=== PATIENT | female | born 1930 | race Caucasian/White ===

== ENCOUNTER 2016-08-12 11:19 | Emergency (ER) | payer MEDICARE, BC ==
[~2016-08-12] VITALS: Ht 172.7 cm; Wt 106.8 kg
[~2016-08-12 11:19] MED LIST: ASPI-611 PO; BRIM5DRO5 BOTH EYES; CALC1TAB16 PO; CHOL200024 PO; DULO60CA25 PO; FURO-153 PO; GABA-215 PO; HYDR-347 PO; INSU100V8 SQ; LABE100T PO; LISI-625 PO; MORP-5 PO; MULT-798 PO; NITR0.4T SL; NYST10PO TOP; POLY17PO6 PO; POTA10CA37 PO; TIMO1DRO2 LEFT EYE
[2016-08-12 11:20] VITALS: Ht 172.7 cm; Wt 106.8 kg
--- NOTE | 2016-08-12 11:38 | NUR ---
O2 OXYGEN 83-86% ON 6L/NC. PT PLACED ON 10L SM AT THIS TIME. SPO2 IMPROVES TO 97%.
--- NOTE | 2016-08-12 11:40 | NUR ---
DR HINES AT BEDSIDE TO SEE PT.
--- OUTSIDE RECORDS SUMMARY | 2016-08-12 11:40 | XMS REPORT | Continuity of Care Document ---
Author Author [facility] Organization [facility] Address Unknown Phone Unavailable Support Name Relationship Address Phone ALE RAMÍREZ MD Caregiver [address] [place] [address] Unavailable CASTROKALEY DO Caregiver [address] [place] [address] Unavailable CJ ISABEL DO Caregiver [address] [place] [address] Unavailable CJ ISABEL DO Caregiver [address] [place] [address] Unavailable VANGIE HALL Next Of Kin [address] [address] Insurance Providers Guarantor Mackenzie Hall Address [address] [address] Email NO TO PT PORTAL [facility] Policy Number [id number] Subscriber's Name Mackenzie Hall Relationship 18 Self Group Number [id number] Payer Medicare Policy Number [id number] Subscriber's Name Mackenzie Hall Relationship 18 Self Advance Directives Directive Response Recorded Date/Time Advanced Directives Type DPOA for Healthcare 07/23/16 4:55am Dr Ordered Resuscitation Status Full Code 07/23/16 7:57am Resuscitation Documents on File No 07/23/16 9:12am DPOA for Healthcare Only Y Carmen Delgadillo 07/23/16 9:37pm Living Will No 07/23/16 9:12am Problems Active Problems Medical Problem Onset Date Status Acute kidney injury Unknown Resolved Acute respiratory insufficiency Unknown Resolved Atherosclerotic heart disease of [place] coronary artery without angina pectoris Unknown Chronic CAD (coronary artery disease) Unknown Chronic DM (diabetes mellitus) Unknown Chronic Depression Unknown Chronic EXACERBATION OF BACK PAIN Unknown Acute Essential (primary) hypertension Unknown Chronic Fall Unknown Acute Gait instability Unknown Chronic HTN (hypertension) Unknown Chronic Hyperkalemia Unknown Resolved Hypoglycemia Unknown Acute Hypokalemia Unknown Resolved Hypoxemia Unknown Resolved Hypoxemia requiring supplemental oxygen Unknown Acute Lumbago Unknown Acute Macular degeneration Unknown Chronic Mixed hyperlipidemia Unknown Chronic Morbid obesity with BMI of 40.0-44.9, adult Unknown Chronic Neuropathy Unknown Chronic OA (osteoarthritis) Unknown Chronic Occlusion and stenosis of bilateral carotid arteries Unknown Chronic Pacemaker Unknown Chronic Pain Unknown Peripheral edema Unknown Acute Presence of cardiac pacemaker Unknown Chronic Pulmonary infiltrates on CXR Unknown Resolved Respiratory insufficiency Unknown Acute SPINAL STENOSIS Unknown Chronic Sepsis Unknown Resolved Spinal stenosis Unknown Stage III chronic kidney disease Unknown Chronic Tinea versicolor Unknown Acute UTI Unknown Acute UTI (urinary tract infection) Unknown Acute Vision problems Unknown Chronic sciatica Unknown Acute Past Problems Medical Problem Onset Date Generalized weakness Unknown Hypoxemia requiring supplemental oxygen Unknown Hypoxia Unknown Refractory nausea and vomiting Unknown Sepsis Unknown Septic shock Unknown UTI (urinary tract infection) Unknown Medications Current Home Medications Medication Dose Units Route Directions Days Qty Instructions Start Date Aspirin 81 Mg Tablet 81 Mg Oral Daily 06/14/11 Brimonidine Tartrate (Alphagan Eqv) 5 Ml Drops 1 Drop Both Eyes Twice A Day 01/09/13 Calcium Carbonate 500 Mg Tablet 1,000 Mg Oral Twice A Day Cholecalciferol (Vitamin D3) (Vitamin D) 2,000 Unit Tablet 2,000 Unit Oral Daily 01/09/13 Duloxetine Hcl (Cymbalta) 60 Mg Capsule.dr 60 Mg Oral Daily 05/05 Furosemide (Lasix) 40 Mg Tablet 1 Tab Oral Daily 07/23/16 Gabapentin 300 Mg Capsule 900 Mg Oral Three Times A Day 01/09/13 Hydrocodone/Acetaminophen ([place] 7.5-325 Tablet) 7.5-325 Tablet 1 Tab Oral Twice A Day 07/23/16 Insulin Glargine,Hum.rec.anlog (Lantus) 100 Unit/Ml Inj 45 Unit Sub-Q Daily Morning Insulin 07/23/16 Insulin Glargine,Hum.rec.anlog (Lantus) 100 Unit/Ml Inj 25 Unit Sub-Q 15 Minutes Before Supper 07/23/16 Labetalol Hcl 100 Mg Tablet 200 Mg Oral Twice A Day for Hypertension 60 Tablet 07/27/16 Lisinopril 5 Mg Tablet 5 Mg Oral Give 0900 & 1700 60 Tablet Morphine Sulfate (Morphine Sulfate Er) 15 Mg Tablet.er 15 Mg Oral Twice A Day for Pain 60 Tablet 07/27/16 Multivits W-Ca,Fe,Other Min (Womens Multiple Vitamins) 1 Tab Tablet 1 Tab Oral Daily 05/02/12 Nitroglycerin (Nitrostat) 0.4 Mg Tablet 1 Tab Sublingual Every 5 Minutes X 3 12/06/15 Nystatin 50,000,000 Unit Powder.ea. 1 Applic Topically Three Times A Day for Tinea 7 Days 07/27/16 Polyethylene Glycol 3350 (Miralax) 17 Gm Powd.pack 17 G Oral Twice A Day Take 17 Grams (1 capful), by mouth, once a day. 07/23/16 Potassium Chloride 10 Meq Capsule.er 10 Meq Oral Give With Breakfast 30 Capsule Take 1 capsule, by mouth, daily with breakfast 07/27/16 Timolol Maleate/Pf (Timoptic 0.5% Ocudose Drop) 1 Each Droperette 1 Drop Left Eye Only Twice A Day 12/06/15 Past Home Medications Medication Directions Ordered Status Acetaminophen (Acetaminophen Extra Strength) 500 Mg Tablet, As Needed Discontinued Acetaminophen (Tylenol Extra Strength) 500 Mg Tablet, 500 Mg Oral As Needed 11/02/09 Discontinued Aliskiren Hemifumarate (Tekturna) 150 Mg Tablet, 150 Mg Oral Daily 10/23/08 Discontinued Amlodipine Besylate (Norvasc) 10 Mg Tablet, 5 Mg Oral Daily 03/17/10 Discontinued Aspirin 81 Mg Tablet, 1 Tab Oral Daily 03/17/10 Discontinued Aspirin 325 Mg Tablet, 81 Mg Oral Daily 11/02/09 Discontinued Atenolol 25 Mg Tablet, 25 Mg Oral Twice A Day 01/20/11 Discontinued Baclofen 10 Mg Tablet, 10 Mg Oral Twice A Day 05/10/16 Discontinued Brimonidine Tartrate 15 Ml Drops, 1 Ml Ophthalmic Twice A Day 03/27/11 Discontinued Calcium Carbonate/Vitamin D3 (Calcium + D Tablet) 1 Udtab Tablet, 1 Udtab Oral Twice A Day 03/17/10 Discontinued Celecoxib (Celebrex) 200 Mg Capsule, 200 Mg Oral Daily 11/04/11 Discontinued Celecoxib (Celebrex) 200 Mg Capsule, 200 Mg Oral Daily 08/06/11 Discontinued Cholecalciferol (Vitamin D) 1,000 Unit Capsule, 1000 Unit Oral Daily Discontinued Cholecalciferol (Vitamin D) 1,000 Unit Tablet, 1000 Unit Oral Daily 03/17/10 Discontinued Clopidogrel Bisulfate (Plavix) 75 Mg Tablet, 75 Mg Oral Daily 06/14/11 Discontinued Clopidogrel Bisulfate (Plavix) 75 Mg Tablet, 75 Mg Oral Daily 03/17/10 Discontinued Colesevelam Hcl (Welchol) 625 Mg Tablet, 625 Mg Oral Daily 04/11/09 Discontinued Docusate Sodium (Colace) 100 Mg Capsule, 100 Mg Oral Twice A Day 03/27/11 Discontinued Enoxaparin Sodium (Lovenox) 40 Mg/0.4 Ml Disp.syrin, 40 Mg Sub-Q Daily Discontinued Exenatide (Byetta) 10 Mcg Pen, 5 Mcg Sub-Q Twice A Day 04/11/09 Discontinued Fentanyl (Duragesic 25MCG/Hr Patch) 1 Patch Patch, 1 Patch Transderm Daily Discontinued Ferrous Sulfate (Iron) 1 Tab Tablet, 1 Tab Oral Daily 10/23/08 Discontinued Fish Oil/[place]-3 Fatty Acids (Fish Oil 1,000 Mg Capsule) 1 Cap Capsule, 1 Cap Oral Daily 09/23/11 Discontinued Fish Oil/[place]-3 Fatty Acids (Fish Oil 1,000 Mg Capsule) 1 Cap Capsule, 1 Cap Oral Twice A Day 03/17/10 Discontinued Furosemide (Lasix) 40 Mg Tablet, 40 Mg Oral Daily 09/23/11 Discontinued Furosemide 40 Mg Tablet, 40 Mg Oral Twice A Day 06/14/11 Discontinued Furosemide (Lasix) 20 Mg Tablet, 20 Mg Oral Daily 03/27/11 Discontinued Glimepiride (Amaryl) 1 Mg Tablet, 1 Mg Oral Daily 09/23/11 Discontinued Glimepiride 2 Mg Tablet, 2 Mg Oral Daily 06/14/11 Discontinued Glimepiride (Amaryl) 1 Mg Tablet, 1 Tab Oral Twice A Day 03/17/10 Discontinued Glimepiride 1 Mg Tablet, 1 Mg Oral Daily 04/11/09 Discontinued Glimepiride 1 Mg Tablet, 1 Mg Oral Daily 10/22/08 Discontinued Hydrochlorothiazide 25 Mg Tablet, 12.5 Mg Oral Daily 03/17/10 Discontinued Hydrocodone Bit/Acetaminophen ([place] 10) 1 Udtab Tablet, 1 Udtab Oral As Needed 11/04/11 Discontinued Hydrocodone Bit/Acetaminophen ([place] 7.5/325 Tablet) 1 Tab Tablet, 1 Tab Oral Every 4-6 Hours as needed 03/27/11 Discontinued Hydrocodone Bit/Acetaminophen (Lortab 5/500 Tablet) 1 Tab Tablet, 1 Tab Oral Three Times A Day 01/20/11 Discontinued Hydrocodone/Acetaminophen ([place] 5-325 Tablet) 5-325 Tablet, 1 Tab Oral Every 3 Hours as needed for Pain 05/10/16 Discontinued Ibuprofen 200 Mg Tablet, 200 Mg Oral As Needed 10/23/08 Discontinued Imodium Ad , As Needed 11/02/09 Discontinued Insulin Glargine (Lantus) 100 U/Ml Vial, 55 Unit Sub-Q Daily 09/23/11 Discontinued Insulin Glargine (Lantus) 100 U/Ml Vial, 16 U Sub-Q Bedtime 03/27/11 Discontinued Insulin Glargine (Lantus) 100 U/Ml Vial, 20 U Sub-Q Daily 03/27/11 Discontinued Insulin Glargine (Lantus) 100 U/Ml Vial, 14 Unit Sub-Q Twice A Day 03/17/10 Discontinued Lantus Solostar , 16 Sub-Q Twice A Day 03/22/11 Discontinued Lisinopril 5 Mg Tablet, 2.5 Mg Oral Twice A Day 12/06/15 Discontinued Lisinopril 40 Mg Tablet, 10 Mg Oral Daily 06/14/11 Discontinued Lisinopril 40 Mg Tablet, 40 Mg Oral Daily 03/17/10 Discontinued Magnesium 250 Mg Tablet, 250 Mg Oral Daily 03/17/10 Discontinued Meloxicam (Mobic) 15 Mg Tablet, 15 Mg Oral Daily 07/23/08 Discontinued Metformin , 50 Mg Twice A Day 03/22/11 Discontinued Metoprolol Succinate (Toprol Xl) 50 Mg Tab.sr.24h, 25 Mg Oral Twice A Day 04/16 Discontinued Metoprolol Tartrate 50 Mg Tablet, 50 Mg Oral Twice A Day 05/02/12 Discontinued Metoprolol Tartrate 25 Mg Tablet, 50 Mg Oral Daily 06/14/11 Discontinued Morphine Sulfate (Ms Contin) 100 Mg Tablet.er, 1 Tab Oral Twice A Day Discontinued Multivitamins W-Minerals (Multivitamin) 1 Cap Capsule, 1 Cap Oral Daily 03/17 Discontinued Naproxen (Naprosyn) 250 Mg Tablet, 250 Mg Oral Daily 09/23/11 Discontinued Nitrofurantoin Monohyd/M-Cryst (Macrobid 100 Mg Capsule) 100 Mg Capsule, 1 Cap Oral Twice Daily With Meals 07/23/16 Discontinued Nitroglycerin 0.4 Mg Tab.subl, 0.4 Mg Sublingual As Needed 03/17/10 Discontinued Omeprazole (Prilosec) 20 Mg Capsule.dr, 20 Mg Oral Daily 09/23/11 Discontinued Omeprazole (Prilosec) 20 Mg Capsule.dr, 20 Mg Oral Daily 03/22/11 Discontinued Omeprazole (Prilosec) 20 Mg Capsule.dr, 20 Mg Oral Daily 11/02/09 Discontinued Ondansetron Hcl (Zofran) 4 Mg Tablet, 4 Mg Oral As Needed 06/14/11 Discontinued Oxybutynin , 5 Mg Daily 03/22/11 Discontinued Oxybutynin Chloride (Ditropan) 5 Mg Tablet, 5 Mg Oral Bedtime 11/04/11 Discontinued Pantoprazole Sodium (Protonix) 40 Mg Tablet.dr, 40 Mg Oral Daily 03/27/11 Discontinued Pantoprazole Sodium (Protonix) 40 Mg Tablet.dr, 40 Mg Oral Daily 04/11/09 Discontinued Pioglitazone Hcl 15 Mg Tablet, 15 Mg Oral Daily 12/06/15 Discontinued Pioglitazone Hcl (Actos) 45 Mg Tablet, 45 Mg Oral Daily 10/24/09 Discontinued Potassium Chloride (Klor-Con M20) 20 Meq Tablet, 20 Meq Oral Every Morning Discontinued Potassium Chloride 20 Meq Tab.prt.sr, 20 Meq Oral Daily 11/04/11 Discontinued Promethazine Hcl 25 Mg Tablet, 25 Mg Every 4-6 Hours Prn for Nausea 12/06/15 Discontinued Propoxyphene/Acetaminophen (Darvocet-N 100 Tablet) 1 Tab Tablet, 1 Tab Oral As Needed 10/23/08 Discontinued Psyllium Seed (Metamucil) 1 Pkt Packet, 1 Pkt Oral Twice A Day 03/17/10 Discontinued Raloxifene Hcl (Evista) 60 Mg Tablet, 60 Mg Oral Bedtime 03/17/10 Discontinued Sertraline Hcl (Zoloft) 25 Mg Tablet, 25 Mg Oral Daily 06/14/11 Discontinued Sertraline Hcl (Zoloft) 25 Mg Tablet, 25 Mg Oral Daily 03/22/11 Discontinued Sertraline Hcl (Zoloft) 50 Mg Tablet, 50 Mg Oral Daily 03/17/10 Discontinued Temazepam (Restoril) 15 Mg Capsule, 15 Mg Oral As Needed 11/04/11 Discontinued Temazepam (Restoril) 15 Mg Capsule, 15 Mg Oral Bedtime as needed 03/27/11 Discontinued Timolol Maleate (Timolol Maleate 0.5%) 15 Ml Drops, 1 Ml Ophthalmic Bedtime 03/27/11 Discontinued Tramadol Hcl 50 Mg Tablet, 50 Mg Oral As Needed 06/14/11 Discontinued Social History Social History Problem Response Recorded Date/Time Onset Date Status Reason for Hospitalization Sepsis 07/27/2016 1:11pm Not Applicable Not Applicable Chewing Tobacco Status No 02/24/2013 2:56pm Not Applicable Not Applicable Hx Substance Use No 07/23/2016 6:22am Not Applicable Not Applicable Hx Alcohol Use No 07/23/2016 6:22am Not Applicable Not Applicable Has the pt used tobacco in the last 12 months No 07/23/2016 9:15am Not Applicable Not Applicable Tobacco Usage none 12/06/2015 2:43pm Not Applicable Not Applicable Query Response Start Date Stop Date Smoking Status Unknown if ever smoked Hospital Discharge Instructions Instructions: Care Instructions: Reason for Hospitalization: Sepsis I was in the hospital because (patient own words): because I was going in a car down the road Discharge Diet: Soft diet/chopped meats; no added salt/conc sweets Discharge Activity: Walker for assistance Follow Up Appointments: Dr Ramírez in [address] Diop in 1 week Pending Lab / Results: No Pending Lab Wound/Incision Care: n/a Pain Management/Treatment: MS Contin and Grafton Expected Signs/Symptoms: Improvement of breathing and functional status Notify Physician If: Temp >100.4. Intractable diarrhea During Business Hours:: Nursing staff at [facility] After Business Hours:: Nursing staff at [facility] Condition at time of discharge: Good Plan of Care Discharge Date 07/27/16 3:13pm Disposition 03 TO U NOT [facility] (SNF) Instructions/Education Provided Urinary Tract Infection in Women (GEN) Sepsis (GEN) Prescriptions See Medication Section Care Plan and Goals See Discharge Instructions Section Functional Status Query Response Date Recorded Mobility Status Transfer w/assist July 27, 2016 1:11pm Assistive Devices standard walker, wheelchair at times July 27, 2016 1:11pm Activity Limitations Weakness Fatigue July 27, 2016 1:11pm Feeding Ability Independent July 27, 2016 1:11pm Toileting Ability Dependent July 27, 2016 1:11pm Grooming Ability Dependent July 27, 2016 1:11pm Dressing Ability Dependent July 27, 2016 1:11pm Driving Ability Dependent July 27, 2016 1:11pm Housework Ability Dependent July 27, 2016 1:11pm Meal Preparation Ability Dependent July 27, 2016 1:11pm Stair Climbing Ability Dependent July 27, 2016 1:11pm Ability to complete ADL's impeded by Impaired Mobility July 27, 2016 1:11pm Cognitive/Perceptual Impairments Acute confusion July 27, 2016 1:11pm Preferred Method of Learning Reading Listening July 26, 2016 9:15am Allergies, Adverse Reactions, Alerts Allergen Type Severity Reaction Status Last Updated Penicillin Allergy Severe rash/itching Active 07/23/16 Metformin Allergy Unknown DIARRHEA Active 07/23/16 Exenatide Allergy Unknown NAUSEA Active 07/23/16 Immunizations Query Response on File Recorded Date/Time Hx Influenza Vaccination Y fall 201507/23/16 9:15am Hx Pneumococcal Vaccination Yes 07/23/16 9:15am Hx Tetanus, Diptheria, Pertussis N/A SKIN INTACT 02/24/13 2:56pm Hx Influenza Vaccination Y fall 201507/23/16 9:15am Hx Tetanus, Diptheria, Pertussis N/A SKIN INTACT 02/24/13 2:56pm Influenza Vaccine Hx APR 2016 07/23/16 12:16pm Vital Signs Acute Vital Signs Vital Response Date/Time Temperature (Fahrenheit) 96.9 deg F (96.8 - 99.1) 07/27/2016 7:30am Temperature (Calculated Celsius) 36.36067 degrees C (36.0 - 37.3) 07/27/2016 7:30am Pulse Rate (adult) 78 bpm (60 - 100) 07/27/2016 7:30am Respiratory Rate 18 breaths/min (10 - 20) 07/27/2016 7:30am O2 Sat by Pulse Oximetry 93 % (90 - 100) 07/27/2016 7:30am Oxygen Delivery Method Nasal Cannula 07/26/2016 8:58pm Oxygen Delivery Method Nasal Cannula 07/27/2016 7:30am Oxygen Flow Rate 2.00 L/min 07/27/2016 7:30am Blood Pressure 173/91 mm Hg 07/27/2016 7:30am Blood Pressure Source Automatic Cuff 07/27/2016 7:30am Height (Feet) 5 feet 07/27/2016 3:12pm Height (Inches) 3.00 inches 07/27/2016 3:12pm Weight (Kilograms) 104.900 kg 07/26/2016 7:49am Body Mass Index (BMI) 41.8 07/23/2016 9:11am Results Laboratory Results Test Name Result Units Flags Reference Collection Date/Time Result Date/ Time Comments Prothromb Time International Ratio 1.64 H 0.88-1.13 11/05/2009 4:35am 11/05/2009 5:56am THERAPUTIC RANGE=2.00-3.00 FOR ANTI-THROMBOSIS THERAPUTIC RANGE=2.50-3.50 FOR IMPLANTED VALVE Activated Partial Thromboplast Time 28.4 SEC 24-36 11/03/2009 5:10am 6:06am D-Dimer 1039 NG/ML H 0-224 11/02/2009 3:35pm 11/02/2009 3:48pm <224 NG/ ML=PRESUMPTIVE NEGATIVE FOR PE OR DVT >224 NG/ML=ADDITIONAL EVALUATION FOR PE OR DVT RECOMMENDED D-Dimer 620 NG/ML H 0-230 05/10/2016 12:44pm 05/10/2016 12:55pm <230 NG /ML D-DU=PRESUMPTIVE NEGATIVE FOR PE OR DVT >230 NG/ML D-DU=ADDITIONAL EVAL FOR PE OR DVT RECOMMENDED Phosphorus Level 3.8 MG/DL 2.5-4.5 05/11/2016 5:20am 05/11/2016 5:47am ZL-Nxb-B-Type Natriuretic Peptide 466 PG/ML H 0-175 05/10/2016 12:44pm 05/10/2016 4:44pm Rule in cut points: <50 years old=450; 50-75 years old=900; >75 years old=1800; When utilizing ProBNP rule-in cut points, adjustment for impaired renal function is typically not required. Adenovirus (PCR) NEGATIVE NEGATIVE 05/10/2016 4:20pm 05/10/2016 5: 50pm Coronavirus Type 229E (PCR) NEGATIVE NEGATIVE 05/10/2016 4:20pm 05/10 5:50pm Coronavirus Type HKU1 (PCR) NEGATIVE NEGATIVE 05/10/2016 4:20pm 05/10 5:50pm Coronavirus Type NL63 (PCR) NEGATIVE NEGATIVE 05/10/2016 4:20pm 05/10 5:50pm Coronavirus Type OC43 (PCR) NEGATIVE NEGATIVE 05/10/2016 4:20pm 05/10 5:50pm Human Metapneumovirus (PCR) NEGATIVE NEGATIVE 05/10/2016 4:20pm 05/10 5:50pm Enterovirus/Rhinovirus (PCR) NEGATIVE NEGATIVE 05/10/2016 4:20pm 09/2015 5:50pm Influenza Virus Type A (PCR) NEGATIVE NEGATIVE 05/10/2016 4:20pm 09/2015 5:50pm Influenza Virus Type B (PCR) NEGATIVE NEGATIVE 05/10/2016 4:20pm 09/2015 5:50pm Parainfluenza Type 1 (PCR) NEGATIVE NEGATIVE 05/10/2016 4:20pm 2015 5:50pm Parainfluenza Type 2 (PCR) NEGATIVE NEGATIVE 05/10/2016 4:20pm 2015 5:50pm Parainfluenza Type 3 (PCR) NEGATIVE NEGATIVE 05/10/2016 4:20pm 2015 5:50pm Parainfluenza Type 4 (PCR) NEGATIVE NEGATIVE 05/10/2016 4:20pm 2015 5:50pm Respiratory Syncytial Virus (PCR) NEGATIVE NEGATIVE 05/10/2016 4:20pm 05/10/2016 5:50pm Bordetella parapertussis DNA (PCR) NEGATIVE NEGATIVE 05/10/2016 4: 20pm 05/10/2016 5:50pm Chlamydia pneumoniae DNA (PCR) NEGATIVE NEGATIVE 05/10/2016 4:20pm 5:50pm Mycoplasma pneumoniae (PCR) NEGATIVE NEGATIVE 05/10/2016 4:20pm 05/10 5:50pm Magnesium Level 2.0 MG/DL 1.6-2.3 06/10/2016 6:20am 06/10/2016 8:44am Thyroid Stimulating Hormone (TSH) 1.36 MIU/L 0.47-4.68 06/10/2016 6: 20am 06/10/2016 9:13am White Blood Count 9.6 T/MM3 4.5-11.0 07/27/2016 4:15am 07/27/2016 5: 43am Red Blood Count 3.51 M/MM3 L 4.00-5.20 07/27/2016 4:15am 07/27/2016 5: 43am Hemoglobin 10.4 GM/DL L 12-16 07/27/2016 4:15am 07/27/2016 5:43am Hematocrit 33.0 % L 36-46 07/27/2016 4:1507/27/2016 5:43am Mean Corpuscular Volume 94.0 UM3 80-100 07/27/2016 4:15am 07/27/2016 5: 43am Mean Corpuscular Hemoglobin 29.6 UUG 26-34 07/27/2016 4:152016 5:43am Mean Corpuscular Hemoglobin Concent 31.5 GM/DL 31-37 07/27/2016 4:1507/27/2016 5:43am RDW Standard Deviation 47.7 FL 36.9-50.2 07/27/2016 4:1507/27/2016 5 :43am Platelet Count 261 T/MM3 130-400 07/27/2016 4:1507/27/2016 5:43am Mean Platelet Volume 10.3 UM3 9.4-12.4 07/27/2016 4:1507/27/2016 5: 43am Neutrophils (%) (Auto) 66.7 % H 33-66 07/26/2016 1:pm 07/26/2016 1: 44pm Lymphocytes (%) (Auto) 18.6 % L 23-45 07/26/2016 1:pm 07/26/2016 1: 44pm Monocytes (%) (Auto) 8.6 % 0-9.0 07/26/2016 1:pm 07/26/2016 1:44pm Eosinophils (%) (Auto) 2.9 % 0-4 07/26/2016 1:pm 07/26/2016 1:44pm Basophils (%) (Auto) 0.5 % 0-2 07/26/2016 1:pm 07/26/2016 1:44pm Immature Granulocyte % (Auto) 2.7 % H 0.0-0.5 07/26/2016 1:pm 2016 1:44pm Absolute Neutrophils (auto) 6.5 T/MM3 1.8-7.7 07/26/2016 1:pm 2016 1:44pm Absolute Lymphocytes (auto) 1.8 T/MM3 1-4.8 07/26/2016 1:2016 1:44pm Absolute Monocytes (auto) 0.8 T/MM3 0-0.8 07/26/2016 1:27pm 07/26/2016 1:44pm Absolute Eosinophils (auto) 0.3 T/MM3 0-0.5 07/26/2016 1:27pm 2016 1:44pm Absolute Basophils (auto) 0.1 T/MM3 0-0.2 07/26/2016 1:27pm 07/26/2016 1:44pm Absolute Immature Granulocyte (auto 0.26 T/MM3 H 0.00-0.03 07/26/2016 1: 27pm 07/26/2016 1:44pm Neutrophils % (Manual) 63.0 % 33-66 07/27/2016 4:15am 07/27/2016 6: 50am Band Neutrophils % 2.0 % 0-6 07/27/2016 4:07/27/2016 6:50am Lymphocytes % (Manual) 24.0 % 23-45 07/27/2016 4:07/27/2016 6: 50am Monocytes % (Manual) 7.0 % 0-9.0 07/27/2016 4:07/27/2016 6:50am Eosinophils % (Manual) 3.0 % 0-4 07/27/2016 4:07/27/2016 6:50am Basophils % (Manual) 1.0 % 0-2 07/27/2016 4:07/27/2016 6:50am Band Neutrophils # 0.2 T/MM3 07/27/2016 4:07/27/2016 6:50am Absolute Neutrophils (Manual) 6.0 T/MM3 1.8-7.7 07/27/2016 4:07/27 6:50am Lymphocytes # (Manual) 2.3 T/MM3 1-4.8 07/27/2016 4:07/27/2016 6: 50am Monocytes # (Manual) 0.7 T/MM3 0-0.8 07/27/2016 4:07/27/2016 6: 50am Eosinophils # (Manual) 0.3 T/MM3 0-0.5 07/27/2016 4:07/27/2016 6: 50am Basophils # (Manual) 0.1 T/MM3 0-0.2 07/27/2016 4:07/27/2016 6: 50am Red Cell Morphology Comment NORMAL 07/27/2016 4:07/27/2016 6: 50am Icterus Index < 2 0-7 07/27/2016 4:07/27/2016 5:23am Chemistry Specimen Hemolysis < 15 0-25 07/27/2016 4:07/27/2016 5 :23am 0-25: Specimen Exhibited No Hemolysis. Turbidity < 20 0-20 07/27/2016 4:07/27/2016 5:23am Sodium Level 139 MEQ/L 134-144 07/27/2016 4:07/27/2016 5:23am Potassium Level 4.2 MEQ/L 3.6-5 07/27/2016 4:07/27/2016 5:23am Chloride Level 102 MEQ/L 98-107 07/27/2016 4:07/27/2016 5:23am Carbon Dioxide Level 31 MEQ/L H 22-30 07/27/2016 4:07/27/2016 5: 23am Anion Gap 6 MEQ/L 5-15 07/27/2016 4:07/27/2016 5:23am Blood Urea Nitrogen 18.0 MG/DL H 7-17 07/27/2016 4:07/27/2016 5: 23am Creatinine 0.9 MG/DL 0.7-1.2 07/27/2016 4:07/27/2016 5:23am BUN/Creatinine Ratio 20 RATIO 6-26 07/27/2016 4:07/27/2016 5:23am Glomerular Filtration Rate Calc 60 07/27/2016 4:07/27/2016 5: 23am Glucose Level 135 MG/DL H 65-110 07/27/2016 4:07/27/2016 5:23am Calculated Osmolality 272 MOSM/KG 261-280 07/27/2016 4:07/27/2016 5:23am Calcium Level 9.9 MG/DL 8.4-10.2 07/27/2016 4:07/27/2016 5:23am Total Bilirubin 0.70 MG/DL 0.20-1.30 07/23/2016 5:22am 07/23/2016 5: 44am Alkaline Phosphatase 59 U/L 38-126 07/23/2016 5:07/23/2016 5:44am Total Protein 7.2 G/DL 6.3-8.2 07/23/2016 5:07/23/2016 5:44am Albumin 4.0 G/DL 3.5-5.0 07/23/2016 5:07/23/2016 5:44am Globulin 3.2 G/DL 2.4-3.6 07/23/2016 5:07/23/2016 5:44am Albumin/Globulin Ratio 1.3 RATIO 1.1-2.2 07/23/2016 5:07/23/2016 5 :44am Aspartate Amino Transf (AST/SGOT) 32 U/L 14-36 07/23/2016 5:2016 5:44am Alanine Aminotransferase (ALT/SGPT) 24 U/L 9-52 07/23/2016 5:07/23 5:44am Troponin I 0.017 ng/ml 0-0.12 07/23/2016 10:02pm 07/23/2016 10:34pm Troponin values with a difference of 55% increase from orginal troponin value represent a true biological DELTA value. (%increase Calc=Orginal Troponin value, divided by subsequent Troponin value, multiplied by 100) Plasma Lactate 0.8 MMOL/L 0.6-2.2 07/23/2016 9:49am 07/23/2016 10:36am Procalcitonin 0.05 NG/ML 07/26/2016 1:27pm 07/26/2016 2:11pm PCT </= 0.5 ng/mL - sepsis not likely; PCT >0.5 and </=2 ng/mL - sepsis possible; PCT >2 ng/mL - sepsis likely; PCT >/=10 ng/mL - systemic inflammatory response - sepsis or septic shock highly indicated. Oxygen Delivery Method (LAB) NASAL CANNULA,LITERS 07/23/2016 5:07/23/2016 5:47am Venous Blood pH 7.380 7.31-7.41 07/23/2016 5:07/23/2016 5:47am Venous Blood Partial Pressure CO2 60 MMHG H 40-52 07/23/2016 5: 5:47am Venous Blood Partial Pressure O2 31 MMHG L 40-52 07/23/2016 5:22am 07/23 5:47am Venous Blood HCO3 36 MEQ/L H 22-26 07/23/2016 5:22am 07/23/2016 5:47am Venous Blood Total Carbon Dioxide 37.3 MEQ/L 07/23/2016 5:222016 5:47am Venous Blood Base Excess 8.4 MMOL/L H -2.0-2.0 07/23/2016 5:222016 5:47am Venous Blood Oxygen Saturation 58.0 % 07/23/2016 5:07/23/2016 5: 47am Blood Gas Oxygen Liter Flow 3.0 07/23/2016 5:07/23/2016 5: 47am Stool C. difficile Toxin B Gene PCR NEGATIVE NEGATIVE 07/25/2016 10: 23am 07/25/2016 11:38am If Toxin A is clinically indicated, treat accordingly. Stool Campylobacter PCR NEGATIVE NEGATIVE 07/26/2016 12:11pm 2016 1:51pm Stool C. difficile Toxin (PCR) NEGATIVE NEGATIVE 07/26/2016 12:1107/26/2016 1:51pm Stool Plesiomonas shigelloides PCR NEGATIVE NEGATIVE 07/26/2016 12: 1107/26/2016 1:51pm Stool Salmonella PCR NEGATIVE NEGATIVE 07/26/2016 12:11pm 07/26/2016 1:51pm Stool Vibrio (PCR) NEGATIVE NEGATIVE 07/26/2016 12:1107/26/2016 1: 51pm Stool Vibrio cholera (PCR) NEGATIVE NEGATIVE 07/26/2016 12:11pm 07/26 1:51pm Stool Yersinia enterocolitica (PCR) NEGATIVE NEGATIVE 07/26/2016 12: 11pm 07/26/2016 1:51pm Stool Enteroaggregative E. coli PCR NEGATIVE NEGATIVE 07/26/2016 12: 1107/26/2016 1:51pm Stool Enteropathogenic E. coli (PCR NEGATIVE NEGATIVE 07/26/2016 12: 11pm 07/26/2016 1:51pm Stool Enterotoxigenic Ecoli PCR NEGATIVE NEGATIVE 07/26/2016 12:11pm 07/26/2016 1:51pm Stool E. coli Shiga Toxins NEGATIVE NEGATIVE 07/26/2016 12:11pm 07/26 1:51pm Stool E coli O157 PCR N/A NA/NEG 07/26/2016 12:11pm 07/26/2016 1: 51pm Stool Shigella/EIEC (PCR) NEGATIVE NEGATIVE 07/26/2016 12:11pm 2016 1:51pm Stool Cryptosporidium PCR NEGATIVE NEGATIVE 07/26/2016 12:11pm 2016 1:51pm Stool Cyclospora species Detection NEGATIVE NEGATIVE 07/26/2016 12: 1107/26/2016 1:51pm Stool Entamoeba (PCR) NEGATIVE NEGATIVE 07/26/2016 12:11pm 2016 1:51pm Stool Giardia Lamblia PCR NEGATIVE NEGATIVE 07/26/2016 12:11pm 2016 1:51pm Stool Adenovirus (PCR) NEGATIVE NEGATIVE 07/26/2016 12:11pm 2016 1:51pm Stool Astrovirus (PCR) NEGATIVE NEGATIVE 07/26/2016 12:11pm 2016 1:51pm Stool Norovirus GI/GII PCR NEGATIVE NEGATIVE 07/26/2016 12:11pm 07/26 1:51pm Stool Rotavirus A PCR NEGATIVE NEGATIVE 07/26/2016 12:11pm 2016 1:51pm Stool Sapovirus (PCR) NEGATIVE NEGATIVE 07/26/2016 12:11pm 2016 1:51pm Urine Collection Type STRAIGHT CATH 07/25/2016 10:28am 07/25/2016 10:39am Urine Color YELLOW YELLOW 07/25/2016 10:28am 07/25/2016 10:39am Urine Turbidity SL CLOUDY CLEAR 07/25/2016 10:2807/25/2016 10: 39am Urine Specific [place] 1.015 1.015-1.025 07/25/2016 10:282016 10:39am Urine pH 6.0 5.0-8.0 07/25/2016 10:28am 07/25/2016 10:39am Urine Leukocyte Esterase NEGATIVE NEGATIVE 07/25/2016 10:28am 2016 10:39am Urine Nitrite NEGATIVE NEGATIVE 07/25/2016 10:28am 07/25/2016 10: 39am Urine Protein 2+ A NEGATIVE 07/25/2016 10:2807/25/2016 10:39am Urine Glucose (UA) NEGATIVE NEGATIVE 07/25/2016 10:28am 07/25/2016 10 :39am Urine Ketones TRACE A NEGATIVE 07/25/2016 10:28am 07/25/2016 10:39am Urine Urobilinogen 0.2 EU/DL NORMAL 07/25/2016 10:28am 07/25/2016 10: 39am Urine Bilirubin NEGATIVE NEGATIVE 07/25/2016 10:28am 07/25/2016 10: 39am Urine Blood 3+ A NEGATIVE 07/25/2016 10:28am 07/25/2016 10:39am Urine WBC 3-5 /HPF 0-5 07/25/2016 10:28am 07/25/2016 10:46am Urine RBC 5-10 /HPF H 0-3 07/25/2016 10:28am 07/25/2016 10:46am Urine Squamous Epithelial Cells NONE SEEN 07/25/2016 10:28am 2016 10:46am Urine Bacteria TRACE H NEGATIVE 07/25/2016 10:28am 07/25/2016 10:46am Urine Mucus PRESENT 07/25/2016 10:28am 07/25/2016 10:46am Urine Hyaline Casts 0-1 /LPF 07/25/2016 10:28am 07/25/2016 10:46am Urine Coarse Granular Casts 5-10 /LPF 07/23/2016 7:26am 07/23/2016 7: 45am Urine Culture Indicated CULT NOT INDICATED 07/25/2016 10:28am 07/25 10:46am Glucometer 194 mg/dL H 65-110 07/27/2016 2:34pm 07/27/2016 2:40pm Microbiology Results Procedure Source Organism/Result Collection Date/Time Result Date/Time Result Status Blood Culture Peripheral/Iv Start NO GROWTH AFTER 4 DAYS 07/23/2016 5:21am 07/27/2016 5:27am Preliminary Urine Culture Urine, Straight Cath NO GROWTH AFTER 48 HOURS 07/23/2016 7: 46am 07/25/2016 8:06am Final Name: MACKENZIE HALL Unit #: [id number] : [id number] Sex: F Admit Date: 07/23/16 Loc / Svc: MED Discharge Date: DIAGNOSTIC IMAGING REPORT Report #: [id number] [facility] JUNI Sanders Indication: ITS.REASON: f/u edema PROCEDURE: CHEST 1 VIEW: Encounter: Subsequent Comparison: One view chest, 07/23/2016 Findings: Heart size is stable and there remains slight prominence of pulmonary vasculature and interstitium, essentially no change since the reference study. Trace effusions not excluded. No airspace consolidation. Pacemaker generator with radiographically intact leads noted. Monitor leads overlie the chest. Bony structures are stable in appearance. Impression: Similar appearance of the chest with minimal chronic congestive changes suspected. . Procedures No known history of procedures. Encounters Encounter Location Arrival/Admit Date Discharge/Depart Date Attending Provider Discharged Inpatient [facility] 07/23/16 7:55am 07/27/16 3:13pm CJ ISABEL DO Registered Referred [facility] 06/10/16 8:20am ALE RAMÍREZ MD Discharged Inpatient [facility] 05/10/16 4:30pm 05/14/16 4:05pm MAY COPELAND MD Discharged Inpatient (obs) [facility] 12:00am 11/05/09 3:55pm VIDAL SHELTON MD
[2016-08-12] MEDS ORDERED: HYDR-3989 PO (11:43)
[2016-08-12] MEDS ORDERED: LEVOFLOXACIN 750 mg IVPB 750 MG in D5W 150 ML IV ONE (11:45)
[2016-08-12] MEDS ORDERED: AZTREONAM 1 G in NORMAL SALINE 100 ML IV ONE (11:45)
[2016-08-12] MEDS ORDERED: ACET-2321 PO (11:45)
--- NOTE | 2016-08-12 11:45 | NUR ---
LAB AT BEDSIDE.
--- NOTE | 2016-08-12 11:45 | NUR ---
AT BEDSIDE. HE REPORTS PT HAS BEEN IN AND OUT OF HOSPITAL SINCE BEFORE [facility] 2016. REPORTS PT HAS BEEN CONFUSED
--- NOTE | 2016-08-12 11:45 | ERPDOC ---
Departure Disposition Decision Date: Aug 12, 2016 Disposition Decision Time: 14:51 Disposition: 01 DISCHARGED HOME, SELF-CARE Impression Impression Impression: Primary Impression: Altered mental status Altered mental status type: transient alteration of awareness Qualified Codes : R40.4 - Transient alteration of awareness Additional Impressions: Overuse of medication Nausea and vomiting Vomiting type: unspecified Vomiting Intractability: non-intractable Qualified Codes: R11.2 - Nausea with vomiting, unspecified Diarrhea Diarrhea type: unspecified type Qualified Codes: R19.7 - Diarrhea, unspecified Severity: Moderate Condition: Improved Seen By: Physician only Referrals: ALE RAMÍREZ MD (Family) Follow-up with Dr. Ramírez to evaluate patient's pain medications for adjustment Patient Instructions: Syncope (ED) Problems/Meds/Labs Reviewed?: Yes Medications reviewed and manag: Yes Follow up care ordered?: Yes Mental Status: Alert, Confused Scripts Ondansetron (Zofran Odt) 4 Mg Tab.rapdis 4 MG PO Q6H Y for NAUSEA &/OR VOMITING, #12 TAB Prov: MELECIO HINES MD 08/12/16 HPI - General Medical General Chief Complaint: Syncope Stated Complaint: SYNCOPE AND VOMITING Time Seen by Provider: 11:35 Source: patient Exam Limitations: no limitations HPI - General Medical Initial Comments Patient is an 86-year-old female sent to the emergency department from the shelter for vomiting and syncopal episode. Patient is a total assist, wheelchair only. Patient was in lift being moved from one wheelchair to her bed when patient became unconscious. EMS was called and patient at that time appeared to be very lethargic, requiring 6 L by nasal cannula for oxygen saturations baseline is 3 L. Patient brought to the ER for evaluation. Occurred At: home Allergies: Coded Allergies: Penicillins (Verified Allergy, Severe, rash/itching, 07/23/16) exenatide (Verified Allergy, Unknown, NAUSEA, 07/23/16) metformin (Verified Allergy, Unknown, DIARRHEA, 07/23/16) Past History Patient Surgical History Appendectomy Tonsillectomy. Cardiac stent- Amirani Pacemaker. Left total knee revisionDr. Badillo 04/2012 ORIF right hip- Dr Lebron 03/2011 Cataracts Hip Right femur Colonoscopy Past Medical History Metabolic: diabetes, hypertension ENMT: vision problems Cardiac: CAD GI: constipation Neurological: neuropathy Musculoskeletal: osteoarthritis Psychological: dementia, depression Surgical History General: appendix, tonsils Cardiac: cardiac stent, pacemaker Reproductive/: D&C Joint: hip, knee Family History Family PMH: FOUND: [place], cancer Vaccines Hx Influenza Vaccination: Yes (FALL 2015) Hx Pneumococcal Vaccination: Yes Social History Does patient use chewing tobac: No Alcohol Intake: none Marital Status: Sexuality: male partner Housing: house, shelter Current Occupational Status: retired Review of Systems Constitutional Constitutional: weakness, DENIES: appetite decrease, chills, dizziness, fever ENMT Sinuses: DENIES: congestion, rhinorrhea Mouth/Throat: DENIES: scratchy throat, sore throat Cardiovascular Cardiac: DENIES: chest pain, dyspnea on exertion Pulmonary Respiratory: DENIES: cough, sputum, tachypnea GI Upper Abdomen: nausea, vomiting, DENIES: pain Lower Abdomen: diarrhea, DENIES: pain General: DENIES: frequency, urgency Musculoskeletal General: DENIES: cramps, pain, weakness Integumentary Skin: DENIES: color change, itching, rash Endocrine Endocrine: DENIES: heat/cold intolerance Hematologic/Lymphatic Hematologic/Lymphatic: DENIES: anemia Physical Exam General General Nourishment: well nourished, well developed General Body Habitus: well groomed Vitals and Pain Weight: Kilograms: Height (feet): 5 Height (inches): 3.00 Triage Pain Scale: RN VS reviewed by Provider: Yes Eyes (brief) Eyes Brief: found: EOMI ENMT (brief) ENMT Brief: FOUND: mucosa moist, normal dentition, NOT FOUND: nasal erythema, pharnyx erythema, tonsillar deviation Neck (brief) Neck: NOT FOUND: adenopathy, spasm, tenderness Respiratory (brief) Respiratory: FOUND: clear all hawkins, equal bilaterally, NOT FOUND: rales, wheezes Cardiovascular (brief) Cardiac: FOUND: regular rate, regular rhythm Capillary Refill: <2 sec Abdomen (brief) Abdominal Brief: FOUND: bowel normo active x4, soft, NOT FOUND: tender Lymphatic (brief) Lymphatic Brief: NOT FOUND: adenopathy Musculoskeletal (brief) Musculoskeletal Brief: NOT FOUND: spasm, tenderness Integumentary (brief) Integumentary Brief: FOUND: dry, pink, warm, NOT FOUND: rash Neurologic Mental Status: FOUND: alert, confused (apparent baseline), NOT FOUND: oriented GCS Adult : GCS Eye Opening: (4)Spontaneous GCS Verbal: (4)Confused GCS Motor: (6)Obeys Commands GCS Total: 14 Cranial Nerves: FOUND: other (cranial nerves II through XII intact) Motor : Motor Side: bilateral Motor Location: biceps, triceps, wrist, finger extensors, finger flexors, quadriceps, hamstring, foot extension, foot flexion, intermodal truck driver strength Motor Degree: 4 Sensation: FOUND: soft touch intact x4 ext Differential Diagnoses Considering: Acute [place], CVA, Depression, Hypo/Hyperglycemia, Hypo/Hyperkalemia, Hypo/Hypernatremia, Medication Effect, Meningitis, Metabolic, Pneumonia, Poisoning/Accidental OD, Psychosis, TIA, UTI Progress Results/Orders Orders Procedure Category Date Status Time EKG EKG 08/12/16 Taken 11:32 Lactate - Lactic Acid LAB 08/12/16 Complete 11:35 Blood Culture RICA 08/12/16 Complete 11:35 Cbc W/Auto LAB 08/12/16 Complete Diff-Reflex Manual 11:35 Cmp - Comprehensive LAB 08/12/16 Complete Metabolic 11:35 Procalcitonin LAB 08/12/16 Complete 11:35 Iv Lock (Ed Only) EDM 08/12/16 Transmitted 11:35 Oxygen Administration EDM 08/12/16 Transmitted 11:35 Platt (Ed) EDM 08/12/16 Transmitted 11:35 Chest, Pa & Lateral RAD 08/12/16 Resulted 11:35 Catheter Needs SONAM 08/12/16 Complete Assessment 11:35 Bladder Scanner (Ed) EDM 08/12/16 Transmitted 11:35 Aztreonam (Azactam) PHA 08/12/16 Complete 11:45 Levofloxacin 750 Mg PHA 08/12/16 Complete Ivpb (Levaquin 750 M 11:45 Gi Panel, Pcr, Stool LAB 08/12/16 Complete 12:24 Ua, Dip Wreflex LAB 08/12/16 Complete [employer] Cage Cashier 13:23 Naloxone (Narcan) PHA 08/12/16 Complete 14:00 Normal Saline (Normal PHA 08/12/16 Complete Saline Iv) 14:30 Lab Results Laboratory Tests Test 08/12/16 11:50 08/12/16 13:24 08/12/16 13:44 White Blood Count 8.9T/MM3 Red Blood Count 4.09M/MM3 Hemoglobin 12.2GM/DL Hematocrit 38.8% Mean Corpuscular Volume 94.9UM3 Mean Corpuscular Hemoglobin 29.8UUG Mean Corpuscular Hemoglobin Concent 31.4GM/DL RDW Standard Deviation 48.9FL Platelet Count 168T/MM3 Mean Platelet Volume 10.6UM3 Immature Granulocyte % (Auto) 0.6% Neutrophils (%) (Auto) 77.4% Lymphocytes (%) (Auto) 12.3% Monocytes (%) (Auto) 5.7% Eosinophils (%) (Auto) 3.7% Basophils (%) (Auto) 0.3% Absolute Immature Granulocyte (auto 0.05T/MM3 Absolute Neutrophils (auto) 6.9T/MM3 Absolute Lymphocytes (auto) 1.1T/MM3 Absolute Monocytes (auto) 0.5T/MM3 Absolute Eosinophils (auto) 0.3T/MM3 Absolute Basophils (auto) 0.0T/MM3 Turbidity < 20 Sodium Level 140MEQ/L Potassium Level 4.5MEQ/L Chloride Level 95MEQ/L Carbon Dioxide Level 37MEQ/L Anion Gap 8MEQ/L Blood Urea Nitrogen 23.0MG/DL Creatinine 1.2MG/DL Glomerular Filtration Rate Calc 43 BUN/Creatinine Ratio 19RATIO Glucose Level 203MG/DL Calculated Osmolality 279MOSM/KG Calcium Level 12.8MG/DL Total Bilirubin 0.90MG/DL Icterus Index < 2 Aspartate Amino Transf (AST/SGOT) 29U/L Alanine Aminotransferase (ALT/SGPT) 28U/L Alkaline Phosphatase 60U/L Total Protein 6.4G/DL Albumin 3.7G/DL Globulin 2.7G/DL Albumin/Globulin Ratio 1.4RATIO Plasma Lactate 1.8MMOL/L Procalcitonin < 0.05NG/ML Chemistry Specimen Hemolysis < 15 Stool Cyclospora species Detection Negative Stool Rotavirus A PCR Negative Stool Adenovirus (PCR) Negative Stool Astrovirus (PCR) Negative Stool Campylobacter PCR Negative Stool C. difficile Toxin (PCR) Negative Stool Cryptosporidium PCR Negative Stool E. coli Shiga Toxins Negative Stool E coli O157 PCR N/a Stool Enterotoxigenic Ecoli PCR Negative Stool Enteropathogenic E. coli (PCR Negative Stool Enteroaggregative E. coli PCR Negative Stool Entamoeba (PCR) Negative Stool Giardia Lamblia PCR Negative Stool Salmonella PCR Negative Stool Sapovirus (PCR) Negative Stool Plesiomonas shigelloides PCR Negative Stool Shigella/EIEC (PCR) Negative Stool Yersinia enterocolitica (PCR) Negative Stool Vibrio (PCR) Negative Stool Vibrio cholera (PCR) Negative Stool Norovirus GI/GII PCR Negative Urine Collection Type Voided-not cc-midstr Urine Color Yellow Urine Turbidity Clear Urine pH 7.0 Urine Specific [place] 1.010 Urine Protein Negative Urine Glucose (UA) Negative Urine Ketones Negative Urine Blood Negative Urine Nitrite Negative Urine Bilirubin Negative Urine Urobilinogen 0.2EU/DL Urine Leukocyte Esterase Negative Urinalysis Comment Microscopic not ind. Medications Current ED Medications Aztreonam 1 g/ Sodium Chloride 100 ml @ 200 mls/hr O ONCE IV ; Start 08/12/16 at 11:45; Stop 08/12/16 at 11:45; Status DC Levofloxacin/ Dextrose/Water (LEVAQUIN 750 mg IVPB/D5W) 150 ml @ 100 mls/hr O ONCE IV Last administered on 08/12/16 12:23; Start 08/12/16 at 11:45; Stop at 13:14; Status DC Naloxone HCl 0.2 mg 0.2 mg O ONCE IV Last administered on 08/12/16 14:17; Start 08/12/16 at 14:00; Stop 08/12/16 at 14:01; Status DC Sodium Chloride (Normal Saline IV) 1,000 ml @ 999 mls/hr Q1H1M ONCE IV ; Start 08/12/16 at 14:30; Stop 08/12/16 at 15:30; Status DC EKG EKG : Rate: 60-100 Rhythm: sinus Ipava: normal QRS: normal Intervals: normal ST/T: non-specific changes Interpreted by: signing physician Xray Xray : Xray: CXR PA/Lat Interpretation: Normal, Reviewed Written Report MELECIO HINES MD Aug 12, 2016 11:45 Xray : Xray: CXR PA/Lat Interpretation: Normal, Reviewed Written Report EMLECIO HINES MD Aug 12, 2016 11:45
[2016-08-12] MEDS ORDERED: TRAM50TA4 PO (11:47)
[2016-08-12 12:10] LABS: BASOPHILS % (AUTO) 0.3 % (0-2); EOSINOPHILS # (AUTO) 0.3 T/MM3 (0-0.5); EOSINOPHILS % (AUTO) 3.7 % (0-4); HCT - HEMATOCRIT 38.8 % (36-46); HGB - HEMOGLOBIN 12.2 GM/DL (12-16); IMMATURE GRANULOCYTE # (AUTO) 0.05 T/MM3 (0.00-0.03); IMMATURE GRANULOCYTE % (AUTO) 0.6 % (0.0-0.5); LYMPHOCYTES # (AUTO) 1.1 T/MM3 (1-4.8); LYMPHOCYTES % (AUTO) 12.3 % (23-45); MEAN CORPUSCULAR HGB 29.8 UUG (26-34); MEAN CORPUSCULAR HGB CONC(MCHC 31.4 GM/DL (31-37); MEAN CORPUSCULAR VOLUME 94.9 UM3 (80-100); MEAN PLATELET VOLUME 10.6 UM3 (9.4-12.4); MONOCYTES # (AUTO) 0.5 T/MM3 (0-0.8); MONOCYTES % (AUTO) 5.7 % (0-9.0); NEUTROPHILS #(AUTO)-ABSOLUTE 6.9 T/MM3 (1.8-7.7); NEUTROPHILS % (AUTO) 77.4 % (33-66); RED BLOOD COUNT 4.09 M/MM3 (4.00-5.20); WBC - WHITE BLOOD COUNT 8.9 T/MM3 (4.5-11.0)
[2016-08-12 12:21] LABS: ALBUMIN 3.7 G/DL (3.5-5.0); ALBUMIN/GLOBULIN RATIO 1.4 RATIO (1.1-2.2); ALKALINE PHOSPHATASE 60 U/L (38-126); ALT (SGPT) 28 U/L (9-52); ANION GAP 8 MEQ/L (5-15); AST (SGOT) 29 U/L (14-36); BUN/CREATININE RATIO 19 RATIO (6-26); CALCIUM 12.8 MG/DL (8.4-10.2); CHLORIDE 95 MEQ/L (98-107); CO2 - CARBON DIOXIDE 37 MEQ/L (22-30); CREATININE 1.2 MG/DL (0.7-1.2); GLOMERULAR FILTRATION RATE 43; GLUCOSE 203 MG/DL (65-110); LACTATE - LACTIC ACID 1.8 MMOL/L (0.6-2.2); POTASSIUM 4.5 MEQ/L (3.6-5); SODIUM 140 MEQ/L (134-144); TOTAL PROTEIN 6.4 G/DL (6.3-8.2)
--- NOTE | 2016-08-12 12:34 | NUR ---
IVL EMS IVL DIFFICULT TO FLUSH. DC'D AT THIS TIME.
--- NOTE | 2016-08-12 12:55 | NUR ---
O2 SPO2 97-99% ON 10 VIA SM. O2 DECREASED TO 6L AT THIS TIME. WILL CONT TO MONITOR.
--- NOTE | 2016-08-12 13:09 | NUR ---
XRY PT TO XRY AT THIS TIME.
--- NOTE | 2016-08-12 13:20 | NUR ---
RETURN PT RETURNS FROM XRY TO TRAUMA B.
--- NOTE | 2016-08-12 13:23 | NUR ---
REPORT TO KENIA JOHNSTON FOR [facility].
--- NOTE | 2016-08-12 13:35 | DI ---
INDICATION: ITS.REASON: sepsis workup nausea vomiting shortness of air PROCEDURE: CHEST 2-VIEWS UPRIGHT (PA \T\ LAT) Encounter: Initial COMPARISON: July 26, 2016 FINDINGS: Left cardiac pacemaker again seen. Lungs are hypoinflated. Patchy interstitial and airspace opacity bilaterally, similar to the prior studies. No pneumothorax or pleural effusion. Heart size and mediastinal contours are stable. Impression: Similar appearance of the chest with evidence of chronic mild CHF. No new focal pneumonia. .
--- NOTE | 2016-08-12 13:45 | NUR ---
URINE COLLECTED FROM [facility] AND TAKEN TO LAB
[2016-08-12 13:47] LABS: BLOOD, URINE NEGATIVE (NEGATIVE); COLOR,URINE YELLOW (YELLOW); LEUKOCYTE ESTERASE ,URINE NEGATIVE (NEGATIVE); NITRITE,URINE NEGATIVE (NEGATIVE); UROBILINOGEN,URINE 0.2 EU/DL (NORMAL)
[2016-08-12] MEDS ORDERED: NALOXONE 0.4mg/ml INJECTION IV ONE (14:00)
[2016-08-12] MEDS ORDERED: NORMAL SALINE 1,000 ML IV ONE (14:30)
[2016-08-12] MEDS ORDERED: ONDA4TAB7 PO (14:55)
--- NOTE | 2016-08-12 15:17 | NUR ---
REPORT REPORT GIVEN TO AC CABAN
--- NOTE | 2016-08-12 15:35 | NUR ---
ELIMINATION PT PUT IN A PULL UP FOR TRANSPORTATION TO [facility]
[2016-08-12 16:34] VITALS: BP 154/68; PULSE 113; RESP 18; TEMP 98.9; O2SAT 94
== END 2016-08-12 16:34 | disposition home or self-care (01) ==
LOC: ED 11:19
DX: R40.4 Transient alteration of awareness (principal); T50.901A Poisoning by unspecified drugs, medicaments and biological substances, accidental (unintentional), initial encounter; Y92.122 Bedroom in nursing home as the place of occurrence of the external cause; R11.2 Nausea with vomiting, unspecified; R19.7 Diarrhea, unspecified
CPT/HCPCS: 36415; 51702; 71020; 80053; 81003; 83605; 84145; 85025; 87040; 87507; 93005; 96365; 96375; 99284; J1956; J2310; J7060